=== PATIENT | female | born 1965 | race Caucasian/White ===

== ENCOUNTER 2017-12-26 03:56 | Inpatient (IN) | payer OTHER ==
[2017-12-26] VITALS (8 sets, daily range): BP systolic 97–102; BP diastolic 60–66; PULSE 72–101; TEMP 37.3–38.9; O2SAT 93–100; Ht 175.3 cm; Wt 75.9 kg
[~2017-12-26] VITALS: Ht 175.3 cm; Wt 75.9 kg
[~2017-12-26 03:56] MED LIST: ALBUAER2 INH; FENO48TA9 PO; FLNIN NAE; LEVO75TA PO; MIDRIN PO; MINO75CA2 PO
[2017-12-26] MEDS ORDERED: LORAZEPAM 2 MG/ML 1 ML VIAL ONE (04:07)
[2017-12-26 04:35] LABS: IG# 0.01 K/uL (0.00-0.02); LYMPH % 14.9 %; MEAN CELL VOLUME 91.6 fL (80-100); MEAN CORPUSCULAR HEMOGLOBIN 31.4 pg (25-34); MEAN CORPUSCULAR HGB CONC 34.3 g/dl (32-36); MEAN PLATELET VOLUME 9.9 fL (7.4-10.4); MONO % 3.3 %; NEUT % 81.6 %; NEUT ABS # 4.95 K/uL (1.4-6.5); PLATELET COUNT 187 K/uL (130-400); RED CELL DISTRIBUTION WIDTH SD 43.7 fL (36.4-46.3); WHITE BLOOD COUNT 6.06 K/uL (4.8-10.8)
[2017-12-26] MEDS ORDERED: CEFD1CAP14 PO (04:36)
[2017-12-26] MEDS ORDERED: GUAISYP4 PO (04:38)
[2017-12-26] MEDS ORDERED: DOXY100C76 PO (04:40)
[2017-12-26] MEDS ORDERED: SPIR50TA2 PO (04:41)
[2017-12-26] MEDS ORDERED: BENZ1GEL8 EXT (04:43)
[2017-12-26] MEDS ORDERED: ALBUAER INH (04:44)
[2017-12-26] MEDS ORDERED: RTNACR2515 TOP (04:45)
[2017-12-26] MEDS ORDERED: MULT-506 PO (04:46)
[2017-12-26 04:54] LABS: CALCIUM 9.3 mg/dl (8.5-10.1); CREATININE 1.03 mg/dl (0.60-1.20); POTASSIUM 3.1 mmol/L (3.5-5.1)
--- NOTE | 2017-12-26 05:02 | EMERGENCY ROOM VISIT NOTE ---
History Report prepared by Abby: Travis Napoles Under the Supervision of: Dr. Kaleigh Ogden D.O. First contact with patient: 04:01 Chief Complaint: SHORTNESS OF BREATH Stated Complaint: sob History of Present Illness The patient is a 52 year old female who presents to the Emergency Room via EMS with complaints of constant shortness of breath that began prior to arrival. Patient states the shortness of breath came on when the patient got up from bed to go to the bathroom. Patient denies a history of similar symptoms. Patient has associated symptoms of wheezing. She states the wheezing is exacerbated with the cold air and exercise. EMS states that the patient was given albuterol and 2 duonebs en route to the ER. Patient states that she has a history of exercise-induced asthma. She states that her home inhaler did not resolve her symptoms. Patient states that she was seen recently diagnosed with a sinus infection at [facility]. She state she was prescribed Omnicef. Patient denies recent alcohol use. Patient denies a history of blood clots. Patient denies a family history of blood clots. Patient denies any recent long car rides. Patient states that she has been more stressed than usual lately. She states that she is stressed about her job because she is supposed to attend a meeting in [place] this coming week. Patient states that she works for [employer]. Patient has a history of bronchitis and pneumonia. Patient states that she lives with her . Source of History: patient Onset: Prior to arrival Position: other (Global) Timing: constant Modifying Factors (Relieving): other (None) Note: Patient has wheezing. Review of Systems See HPI for pertinent positives & negatives. A total of 10 systems reviewed and were otherwise negative. Past Medical & Surgical Medical Problems: (1) Dyspnea (2) Hypothyroidism (3) SOB (shortness of breath) Surgical Problems: (1) H/O: hysterectomy Family History No pertinent family history. Social History Alcohol Use: occasionally Marital Status: Housing Status: lives with significant other Occupation Status: employed Current/Historical Medications Scheduled Albuterol Sulfate (Proventil Hfa), 2 PUFFS INH QID Benzoyl Peroxide (Benzoyl Peroxide), 1 APPLN EXT BID Cefdinir (Omnicef), 300 MG PO Q12H Doxycycline Monohydrate (Monodox), 100 MG PO BID Fenofibrate (Tricor), 48 MG PO DAILY Fluticasone Propionate (Flonase Nasal [place] *), 2 SPRAYS CONCETTA DAILY Levothyroxine Sodium (Synthroid), 75 MCG PO DAILY Multivitamin (Multivitamin), 1 TAB PO DAILY Spironolactone (Aldactone), 50 MG PO DAILY Tretinoin (Retin-A), 1 APPLN TOP QPM Scheduled PRN Guaifenesin/Codeine (Robitussin-Ac Syrup), 5 ML PO Q4 PRN for Cough Allergies Coded Allergies: No Known Allergies (Verified , 12/26/17) Physical Exam Vital Signs Date Time Temp Pulse Resp B/P (MAP) Pulse Ox O2 Delivery O2 Flow Rate FiO2 12/26/17 08:30 38.0 96 16 107/65 97 Room Air 12/26/17 07:46 94/60 12/26/17 07:31 100 19 96/64 94 Room Air 12/26/17 07:13 95 19 92/63 93 Room Air 12/26/17 06:52 95 20 88/60 92 Room Air 12/26/17 06:27 39.1 106 22 95/57 92 Room Air 12/26/17 05:25 108 16 109/71 95 Room Air 12/26/17 04:10 111 12/26/17 04:05 98 Room Air 12/26/17 04:01 38.0 107 16 118/76 97 Room Air Physical Exam General: Patient is hyperventilating and appears anxious. HEENT: Head - normocephalic and atraumatic Pupils are equal, round, and reactive to light. Extraocular eye muscles are intact, and sclera are anicteric. Nose - moist nasal mucosa without discharge. Mouth - moist buccal mucosa. Oropharynx is nonerythematous and there is no tonsillar exudate or edema noted. Neck: Supple; no JVD, nuchal rigidity, cervical lymphadenopathy. Heart: Regular rate and rhythm. There is a normal S1 and S2 with no murmurs, clicks, or gallops appreciated. Lungs: Clear to auscultation bilaterally with no wheezes, rales, or rhonchi. Abdomen: Soft, completely nontender, nondistended, with good bowel sounds. There are no palpable pulsatile masses or hepatosplenomegaly. There is no guarding, rigidity, or rebound noted. Extremities: No evidence of cyanosis, clubbing, or edema. There are easily palpable peripheral pulses. Skin: warm and dry with good turgor and no rashes. Medical Decision & Procedures ER Provider Diagnostic Interpretation: Radiology results were interpreted by me: Chest X-Ray: No cardiomegaly, no pulmonary infiltrate or pneumothorax. Unchanged from chest x -ray in 2013. Laboratory Results 12/26/17 04:15 Red Blood Count 3.82, Mean Corpuscular Volume 91.6, Mean Corpuscular Hemoglobin 31.4, Mean Corpuscular Hemoglobin Concent 34.3, Mean Platelet Volume 9.9, Neutrophils (%) (Auto) 81.6, Lymphocytes (%) (Auto) 14.9, Monocytes (%) (Auto) 3.3, Eosinophils (%) (Auto) 0.0, Basophils (%) (Auto) 0.0, Neutrophils # (Auto) 4.95, Lymphocytes # (Auto) 0.90, Monocytes # (Auto) 0.20, Eosinophils # (Auto) 0.00, Basophils # (Auto) 0.00 12/26/17 04:15 Test 12/26/17 04:15 12/26/17 05:25 12/26/17 07:06 White Blood Count 6.06 K/uL (4.8-10.8) Red Blood Count 3.82 M/uL (4.2-5.4) Hemoglobin 12.0 g/dL (12.0-16.0) Hematocrit 35.0 % (37-47) Mean Corpuscular Volume 91.6 fL (80-100) Mean Corpuscular Hemoglobin 31.4 pg (25-34) Mean Corpuscular Hemoglobin Concent 34.3 g/dl (32-36) Platelet Count 187 K/uL (130-400) Mean Platelet Volume 9.9 fL (7.4-10.4) Neutrophils (%) (Auto) 81.6 % Lymphocytes (%) (Auto) 14.9 % Monocytes (%) (Auto) 3.3 % Eosinophils (%) (Auto) 0.0 % Basophils (%) (Auto) 0.0 % Neutrophils # (Auto) 4.95 K/uL (1.4-6.5) Lymphocytes # (Auto) 0.90 K/uL (1.2-3.4) Monocytes # (Auto) 0.20 K/uL (0.11-0.59) Eosinophils # (Auto) 0.00 K/uL (0-0.5) Basophils # (Auto) 0.00 K/uL (0-0.2) RDW Standard Deviation 43.7 fL (36.4-46.3) RDW Coefficient of Variation 13.0 % (11.5-14.5) Immature Granulocyte % (Auto) 0.2 % Immature Granulocyte # (Auto) 0.01 K/uL (0.00-0.02) D-Dimer 260 ug/L FEU (0-500) Anion Gap 11.0 mmol/L (3-11) Est Creatinine Clear Calc Drug Dose 66.8 ml/min Estimated GFR () 72.4 Estimated GFR (Non- 62.5 BUN/Creatinine Ratio 9.8 (10-20) Calcium Level 9.3 mg/dl (8.5-10.1) Influenza Type A Antigen POS for Influ A (NEG) Influenza Type B Antigen Neg for Influ B (NEG) Bedside Lactic Acid Venous 1.05 mmol/L (0.90-1.70) Medications Administered Medications (Trade) Dose Ordered Sig/Anupam Route Start Time Stop Time Status Last Admin Dose Admin Lorazepam (Ativan Inj) 2 mg STK-MED ONCE .ROUTE 12/26/17 04:07 12/26/17 04:09 DC 12/26/17 04:07 1 MG Acetaminophen (Tylenol Tab) 1,000 mg NOW STAT PO 12/26/17 05:04 12/26/17 05:05 DC 12/26/17 05:22 1,000 MG Sodium Chloride 2,000 ml @ 999 mls/hr Q2H1M STAT IV 12/26/17 07:06 12/26/17 09:06 DC 12/26/17 07:11 999 MLS/HR Oseltamivir Phosphate (Tamiflu Cap) 75 mg NOW STAT PO 12/26/17 07:27 12/26/17 07:28 DC 12/26/17 07:51 75 MG Prednisone (PredniSONE TAB) 20 mg ONE ONCE PO 12/26/17 08:30 12/26/17 08:36 DC 12/26/17 08:39 20 MG Albuterol/ Ipratropium (Duoneb) 3 ml STK-MED ONCE .ROUTE 12/26/17 08:49 12/26/17 08:50 DC 12/26/17 08:51 3 ML Procedure Ativan Inj 2mg, Tylenol Tab 1000mg PO, and Sodium Chloride 2000 ml @ 999 mls/hr IV. ECG Indication: SOB/dyspnea Rate (beats per minute): 110 Rhythm: sinus tachycardia Findings: ST depression (Lateral) ED Course 0404: Past medical records reviewed. The patient was evaluated in room A3. A complete history and physical exam was performed. Laboratory studies were drawn as above. A chest x-ray was obtained. 0407: Ativan Inj 1mg IV 0410: Patient had a peak flow test performed. Patient's level was 200. 0435: I reassessed the patient who states that she is feeling slightly better. 0450: Patient's electrocardiogram was interpreted by me. 0504: Tylenol Tab 1000mg PO. Her nose was swab for influenza. 0700: While reviewing the results of the patient's laboratory studies including influenza swab, the patient stated that she wasn't feeling well. Patient is hypotensive and feeling worse again. Patient had a second IV line placed. 0706: Sodium Chloride 2000 ml @ 999 mls/hr IV. 0716: Upon reevaluation, I discussed findings and results with her. The patient was given oral Tamiflu. She verbalized agreement of the treatment plan. I spoke with Dr. Barnhart of the [facility]. The patient will be evaluated for further management and care. 0845: I was called the patient's room as she developed a severe coughing fit and became extremely short of breath. O2 saturations dropped into the mid 80s. On evaluation, she was not wheezing. Her respiratory rate was coming down. I discussed the case with the admitting doctor with regards to steroid therapy. He has prednisone ordered. Medical Decision The patient is a 52 year old female who presents to the ED with shortness of breath. Differential diagnosis includes bronchitis, pneumonia, PE, influenza, sepsis, and anxiety. Lab results show D Dimer = 260, normal renal function, glucose = 123, no leukocytosis, lactic acid = 1.05, and stable H&H. This is a 52-year-old female patient who presents to the emergency department with a sudden onset or shortness of breath. The patient describes a one week history of sinus congestion and cough for which she is being treated with Omnicef. The patient has had an intermittent fever. However, tonight, the patient awoke from sleep to go to the bathroom and had extreme shortness of breath with walking to the bathroom. She received nebulizer treatments in route in the ambulance and was feeling much better upon arrival. However, the patient had some hypotension while here in the emergency department. She received IV crystalloid therapy which brought the blood pressure up. Her influenza swab was positive for influenza A. She was given a dose of oral Tamiflu. Her blood pressure did seem to improve after the fluids. I discussed the case with the [facility] Hospitalist and they will evaluate for further management. Medication Reconcilliation Current Medication List: was personally reviewed by me Blood Pressure Screening Patient's blood pressure: Low blood pressure Addressed as an inpatient. Consults Time Called: [phone] Consulting Physician: Dr. Barnhart - [facility]ist Returned Call: [phone] Discussed the patient's case. The patient will be evaluated for further management. Impression Primary Impression: Influenza A Additional Impression: Hypotension Scribe Attestation The scribe's documentation has been prepared under my direction and personally reviewed by me in its entirety. I confirm that the note above accurately reflects all work, treatment, procedures, and medical decision making performed by me. Departure Information Dispostion Being Evaluated By Hospitalist Forms HOME CARE DOCUMENTATION FORM, IMPORTANT VISIT INFORMATION Patient Instructions My [facility] Problem Qualifiers Additional Impression: Hypotension Hypotension type: unspecified hypotension type Qualified Codes: I95.9 - Hypotension, unspecified
[2017-12-26] MEDS ORDERED: ACETAMINOPHEN 500 MG TAB PO STA (05:04)
[2017-12-26 06:19] LABS: INFLUENZA B ANTIGEN Neg for Influ B (NEG)
--- NOTE | 2017-12-26 06:56 | DIAGNOSTIC IMAGING REPORT ---
CHEST 2 VIEWS ROUTINE CLINICAL HISTORY: 52 years-old Female presenting with eval for pneumonia, shortness of breath, fever. TECHNIQUE: PA and lateral views of the chest were obtained. COMPARISON: 02/07/2014. FINDINGS: Cardiomediastinal silhouette normal. Trace blunting of the right posterior costophrenic sulcus, possibly trace pleural effusion or pleural thickening. No focal infiltrate. No pneumothorax. Anterior cervical fusion hardware noted. Upper abdomen normal. IMPRESSION: 1. No convincing evidence of acute cardiopulmonary disease. No focal infiltrate to suggest pneumonia. Possible trace right pleural effusion or pleural thickening. Electronically signed by: Jose A Bocanegra M.D. 12/26/2017 6:55 AM Dictated Date/Time: 12/26/2017 6:53 AM
[2017-12-26] MEDS ORDERED: SODIUM CHLORIDE 0.9% 1000ML 2,000 ML IV STA (07:06)
[2017-12-26] MEDS ORDERED: OSELTAMIVIR PHOSPHATE 75 MG CAP PO STA (07:27)
[2017-12-26] MEDS ORDERED: POTASSIUM CHLORIDE 10 MEQ TABCR PO ONE (07:45)
[2017-12-26] MEDS ORDERED: ACETAMINOPHEN 325 MG TAB PO PRN (08:30)
--- NOTE | 2017-12-26 08:42 | History and Physical ---
History & Physical Date & Time of Service: Dec 26, 2017 at 08:27 Chief Complaint: sob Primary Care Physician: Kenzie Hong DO History of Present Illness Source: patient, spouse, clinic records, hospital records 52 year old female with PMH of exercise induce asthma, dyslipidemia, hypothyroidism presents to the Emergency Room via EMS with complaints of worsening shortness of breath. Pt said that for about 2 weeks she has been having nasal congestion, sore throat , fever, nonproductive cough associated with wheezing. She said that she went to see her PCP and was given Omnicef on 12/20. She said that her symptoms were not getting better and she went for follow up yesterday. Pt said that this morning she got up to use the bathroom, she said that she was out of breath and was wheezing and she also had a fever. She said that that she SOB was worst to the point where she thought she was going to . She said that she used her albuterol with no relief. Call EMS and brought to the ER. As per ED chart, she received 2 DuoNeb treatment en route to the ER. Pt said that she works for [employer] and she has been in contact with alot of sick patients when she goes to [place]. Denies any recent travel. Lives with and has no upper respiratory symptoms. Complaints of chest tenderness when coughing. She said that she feels weak and body achy. Denies any palpitation, dizziness. Past Medical/Surgical History Medical Problems: (1) Hypothyroidism Status: Chronic Surgical Problems: (1) H/O: hysterectomy Status: Resolved Social History Smoking Status: Never Smoker Marital Status: Occupational Status: employed Immunizations History of Influenza Vaccine: Unknown History of Tetanus Vaccine?: Unknown History of Pneumococcal: Unknown History of Hepatitis B Vaccine: Unknown Multi-Drug Resistant Organisms History of MDRO: No Allergies Coded Allergies: No Known Allergies (Verified , 12/26/17) Home Medications Scheduled Albuterol Sulfate (Proventil Hfa), 2 PUFFS INH QID Benzoyl Peroxide (Benzoyl Peroxide), 1 APPLN EXT BID Cefdinir (Omnicef), 300 MG PO Q12H Doxycycline Monohydrate (Monodox), 100 MG PO BID Fenofibrate (Tricor), 48 MG PO DAILY Fluticasone Propionate (Flonase Nasal [place] *), 2 SPRAYS CONCETTA DAILY Levothyroxine Sodium (Synthroid), 75 MCG PO DAILY Multivitamin (Multivitamin), 1 TAB PO DAILY Spironolactone (Aldactone), 50 MG PO DAILY Tretinoin (Retin-A), 1 APPLN TOP QPM Scheduled PRN Guaifenesin/Codeine (Robitussin-Ac Syrup), 5 ML PO Q4 PRN for Cough Review of Systems Constitutional: + fever, + chills, + fatigue Eyes: No worsening of vision, No redness ENT: + nasal symptoms, + sore throat Respiratory: + cough, + sputum, + wheezing, + shortness of breath Cardiovascular: No chest pain, No orthopnea, No edema Abdomen: + nausea, No pain, No vomiting Musculoskeletal: No calf pain Genitourinary - Female: No dysuria, No urinary frequency, No urinary urgency Neurologic: No memory loss, No vertigo Psychiatric: No substance abuse Endocrine: + fatigue, No excessive thirst Hematologic / Lymphatic: No night sweats Integumentary: No itch, No bleeding Physical Exam Vital Signs Date Time Temp Pulse Resp B/P (MAP) Pulse Ox O2 Delivery O2 Flow Rate FiO2 12/26/17 07:46 94/60 12/26/17 07:31 100 19 96/64 94 Room Air 12/26/17 07:13 95 19 92/63 93 Room Air 12/26/17 06:52 95 20 88/60 92 Room Air 12/26/17 06:27 39.1 106 22 95/57 92 Room Air 12/26/17 05:25 108 16 109/71 95 Room Air 12/26/17 04:10 111 12/26/17 04:05 98 Room Air 12/26/17 04:01 38.0 107 16 118/76 97 Room Air General Appearance: WD/WN, no apparent distress Head: normocephalic, atraumatic Eyes: PERRL, EOMI, sclerae normal ENT: normal ENT inspection, + nasal congestion Neck: supple, no JVD Respiratory/Chest: chest non-tender, no respiratory distress, no accessory muscle use Cardiovascular: no edema, no JVD, + tachycardia Abdomen/GI: normal bowel sounds, non tender Back: no CVA tenderness Extremities/Musculoskelatal: no calf tenderness Neurologic/Psych: no motor/sensory deficits, alert, oriented x 3 Skin: normal color, warm/dry Diagnostics Laboratory Results Results Past 24 Hours Test 12/26/17 04:15 12/26/17 05:25 12/26/17 07:06 Range/Units White Blood Count 6.06 4.8-10.8 K/uL Red Blood Count 3.82 4.2-5.4 M/uL Hemoglobin 12.0 12.0-16.0 g/dL Hematocrit 35.0 37-47 % Mean Corpuscular Volume 91.6 80-100 fL Mean Corpuscular Hemoglobin 31.4 25-34 pg Mean Corpuscular Hemoglobin Concent 34.3 32-36 g/dl Platelet Count 187 130-400 K/uL Mean Platelet Volume 9.9 7.4-10.4 fL Neutrophils (%) (Auto) 81.6 % Lymphocytes (%) (Auto) 14.9 % Monocytes (%) (Auto) 3.3 % Eosinophils (%) (Auto) 0.0 % Basophils (%) (Auto) 0.0 % Neutrophils # (Auto) 4.95 1.4-6.5 K/uL Lymphocytes # (Auto) 0.90 1.2-3.4 K/uL Monocytes # (Auto) 0.20 0.11-0.59 K/uL Eosinophils # (Auto) 0.00 0-0.5 K/uL Basophils # (Auto) 0.00 0-0.2 K/uL RDW Standard Deviation 43.7 36.4-46.3 fL RDW Coefficient of Variation 13.0 11.5-14.5 % Immature Granulocyte % (Auto) 0.2 % Immature Granulocyte # (Auto) 0.01 0.00-0.02 K/uL D-Dimer 260 0-500 ug/L FEU Sodium Level 137 136-145 mmol/L Potassium Level 3.1 3.5-5.1 mmol/L Chloride Level 104 98-107 mmol/L Carbon Dioxide Level 22 21-32 mmol/L Anion Gap 11.0 3-11 mmol/L Blood Urea Nitrogen 10 7-18 mg/dl Creatinine 1.03 0.60-1.20 mg/dl Est Creatinine Clear Calc Drug Dose 66.8 ml/min Estimated GFR () 72.4 Estimated GFR (Non- 62.5 BUN/Creatinine Ratio 9.8 10-20 Random Glucose 123 70-99 mg/dl Calcium Level 9.3 8.5-10.1 mg/dl Influenza Type A Antigen POS for Influ A NEG Influenza Type B Antigen Neg for Influ B NEG Bedside Lactic Acid Venous 1.05 0.90-1.70 mmol/L Microbiology Results 12/26/17 Blood Culture, Received Pending 12/26/17 Blood Culture, Received Pending Diagnostic Radiology CHEST 2 VIEWS ROUTINE CLINICAL HISTORY: 52 years-old Female presenting with eval for pneumonia, shortness of breath, fever. TECHNIQUE: PA and lateral views of the chest were obtained. COMPARISON: 02/07/2014. FINDINGS: Cardiomediastinal silhouette normal. Trace blunting of the right posterior costophrenic sulcus, possibly trace pleural effusion or pleural thickening. No focal infiltrate. No pneumothorax. Anterior cervical fusion hardware noted. Upper abdomen normal. IMPRESSION: 1. No convincing evidence of acute cardiopulmonary disease. No focal infiltrate to suggest pneumonia. Possible trace right pleural effusion or pleural thickening. Electronically signed by: Jose A Bocanegra M.D. 12/26/2017 6:55 AM Dictated Date/Time: 12/26/2017 6:53 AM Impression Assessment and Plan Dyspnea Influenza A Present with fever associated with upper respiratory infection CXR showed No convincing evidence of acute cardiopulmonary disease. No focal infiltrate to suggest pneumonia. Starting on Tamiflu 75 mg BID to complete 5 days course No leukocytosis Blood cx pending Continue neb treatment, guaifenesin Will give one dose of prednisone now, will assess for additional dose Continue monitor Asthma No significant wheezing on exam Pt said that she was wheezing prior coming to the ED Received Neb treatment Will give one time dose of prednisone for now and will reassess later Hypokalemia K 3.1 K replaced Continue monitor BMP Hypotension BP was low Received IVF Will give an additional 1 L Will hold Aldactone for now Will monitor in Tele for 24 hrs Skin disorder On doxycycline BID, tretinoin and benzoyl peroxide Stable Hypothyroidism Continue levothyroxine Check TSH DVT px on Lovenox subq CODE STATUS FULL CODE Level of Care Telemetry Resuscitation Status FULL RESUSCITATION VTE Prophylaxis VTE Risk Assessment Done? Y/N: Yes Risk Level: Low Given or contraindicated: Enoxaparin (Lovenox)SQ
[2017-12-26] MEDS ORDERED: ALBUT/IPRATROP 3MG/0.5MG NEB 3 ML VIAL ONE (08:49)
[2017-12-26] MEDS ORDERED: BENZOYL PEROXIDE EXT SCH (09:00)
[2017-12-26] MEDS ORDERED: ONDANSETRON INJ 2 MG/ML 2 ML VIAL IV PRN (11:15)
[2017-12-26] MEDS ORDERED: ONDANSETRON INJ 2 MG/ML 2 ML VIAL ONE (11:21)
[2017-12-26] MEDS ORDERED: SODIUM CHLORIDE 0.9% 1000ML 1,000 ML IV ONE (13:30)
[2017-12-26 13:46] LABS: INR 1.1 (0.9-1.1)
[2017-12-26] MEDS ORDERED: INFLUENZA ADMINISTRATION CHARGE ONE (14:00)
[2017-12-26] MEDS ORDERED: INFLUENZA VIRUS QUAD VACCINE 0.5 ML SYR IM. ONE (14:00)
[2017-12-26] MEDS: ALBUT/IPRATROP 3MG/0.5MG NEB 3 ML VIAL INH SCH ×2 (14:33→19:01)
[2017-12-26] MEDS ORDERED: COUGH DROP (SUGAR FREE) LOZ 24 LOZ/1 BOX LOZ ONE (15:25)
[2017-12-26] MEDS: GUAIFENESIN/CODEINE 200MG/20MG 10ML UDC PO PRN (15:30)
[2017-12-26] MEDS: OSELTAMIVIR PHOSPHATE 75 MG CAP PO SCH (19:57)
[2017-12-26] MEDS: DOXYCYCLINE HYCLATE 100 MG CAP PO SCH (19:57)
[2017-12-26] MEDS: ENOXAPARIN 40 MG/0.4 ML SYR SQ SCH (19:58)
[2017-12-27] VITALS (15 sets, daily range): BP systolic 118–130; BP diastolic 75–86; PULSE 67–85; TEMP 36.6–37.4; O2SAT 95–98
[2017-12-27] MEDS: GUAIFENESIN/CODEINE 200MG/20MG 10ML UDC PO PRN (03:21)
[2017-12-27] MEDS: LEVOTHYROXINE 75 MCG TAB PO SCH (05:42)
[2017-12-27 07:08] LABS: HEMATOCRIT 30.2 % (37-47); HEMOGLOBIN 10.2 g/dL (12.0-16.0); MEAN CELL VOLUME 92.1 fL (80-100); MEAN CORPUSCULAR HEMOGLOBIN 31.1 pg (25-34); MEAN CORPUSCULAR HGB CONC 33.8 g/dl (32-36); MEAN PLATELET VOLUME 9.9 fL (7.4-10.4); PLATELET COUNT 155 K/uL (130-400); RED CELL DISTRIBUTION WIDTH CV 13.4 % (11.5-14.5); RED CELL DISTRIBUTION WIDTH SD 45.5 fL (36.4-46.3); WHITE BLOOD COUNT 4.97 K/uL (4.8-10.8)
[2017-12-27] MEDS: ALBUT/IPRATROP 3MG/0.5MG NEB 3 ML VIAL INH SCH ×4 (07:16→19:29)
[2017-12-27 07:52] LABS: CALCIUM 8.3 mg/dl (8.5-10.1); CREATININE 0.62 mg/dl (0.60-1.20); POTASSIUM 3.7 mmol/L (3.5-5.1)
[2017-12-27] MEDS ORDERED: SODIUM CHLORIDE 0.9% 1000ML 1,000 ML IV SCH ×2 (09:30→19:30)
[2017-12-27] MEDS: FLUTICASONE PROPIONATE NA SPR 16 GM BTL NAE SCH (09:56)
[2017-12-27] MEDS: DOXYCYCLINE HYCLATE 100 MG CAP PO SCH (09:57)
[2017-12-27] MEDS: FENOFIBRATE 48 MG TAB PO SCH (09:57)
[2017-12-27] MEDS: OSELTAMIVIR PHOSPHATE 75 MG CAP PO SCH (09:58)
--- NOTE | 2017-12-27 12:21 | Progress Note ---
Medicine Progress Note Date & Time of Visit: Dec 27, 2017 at 10:11. Subjective Pt was seen and examined Lying in bed with no distress Pt said that her breathing and cough improve She said that she is having watery diarrhea Denies any chest pain, palpitation, dizziness and fever Objective Last 8 Hrs Date Time Temp Pulse Resp B/P (MAP) Pulse Ox O2 Delivery O2 Flow Rate FiO2 12/27/17 11:23 37.2 85 20 125/75 (92) 97 Room Air 12/27/17 08:00 96 Room Air 12/27/17 07:42 37.0 74 20 121/75 (90) 95 Room Air 12/27/17 07:21 73 16 95 Room Air Physical Exam: General- No acute distress Head- atraumatic Eyes- PERRL, EOMI ENT- oropharynx clear Neck- supple, no JVD Lungs- No wheezing Heart- regular rhythm Abdomen- normal bowel sounds, soft Extremities- no calf tenderness Neuro- alert, oriented x 3; PERRL, EOMI; no facial palsy Skin- warm & dry Laboratory Results: Last 24 Hours Test 12/26/17 13:28 12/27/17 06:50 12/27/17 07:03 Prothrombin Time 12.0 SECONDS Prothromb Time International Ratio 1.1 White Blood Count 4.97 K/uL Red Blood Count 3.28 M/uL Hemoglobin 10.2 g/dL Hematocrit 30.2 % Mean Corpuscular Volume 92.1 fL Mean Corpuscular Hemoglobin 31.1 pg Mean Corpuscular Hemoglobin Concent 33.8 g/dl RDW Standard Deviation 45.5 fL RDW Coefficient of Variation 13.4 % Platelet Count 155 K/uL Mean Platelet Volume 9.9 fL Sodium Level 140 mmol/L Potassium Level 3.7 mmol/L Chloride Level 110 mmol/L Carbon Dioxide Level 25 mmol/L Anion Gap 5.0 mmol/L Blood Urea Nitrogen 7 mg/dl Creatinine 0.62 mg/dl Est Creatinine Clear Calc Drug Dose 111.0 ml/min Estimated GFR () 120.2 Estimated GFR (Non- 103.7 BUN/Creatinine Ratio 11.2 Random Glucose 92 mg/dl Calcium Level 8.3 mg/dl Magnesium Level 2.1 mg/dl Thyroid Stimulating Hormone (TSH) 1.110 uIu/ml Hepatitis C Antibody Screen NEG Bedside Glucose 99 mg/dl Assessment & Plan Dyspnea Influenza A Present with fever associated with upper respiratory infection CXR showed no evidence of acute cardiopulmonary disease. No focal infiltrate to suggest pneumonia. Continue Tamiflu 75 mg BID to complete 5 days course No leukocytosis Last fever was yesterday around 3PM Blood cx pending Continue neb treatment, guaifenesin Continue monitor Clinically improves Diarrhea Omnicef was starting on 12/20 If diarrhea persist, Will check stool for Cdiff Monitor electrolytes On IVF Asthma No significant wheezing on exam Pt said that she was wheezing prior coming to the ED Received Neb treatment Stable Hypokalemia K stable Continue monitor BMP Hypotension BP was low on admission Received IVF BP stable Skin disorder On doxycycline BID, tretinoin and benzoyl peroxide Stable Hypothyroidism Continue levothyroxine TSH WNL DVT px on Lovenox subq CODE STATUS FULL CODE Current Inpatient Medications: Current Inpatient Medications Medications (Trade) Dose Ordered Sig/Anupam Route Start Time Stop Time Status Last Admin Dose Admin Enoxaparin Sodium (Lovenox Inj) 40 mg QPM SQ 12/26/17 21:00 01/25/18 20:59 12/26/17 19:58 40 MG Oseltamivir Phosphate (Tamiflu Cap) 75 mg BID PO 12/26/17 21:00 12/31/17 08:59 12/27/17 09:58 75 MG Albuterol/ Ipratropium (Duoneb) 3 ml QIDR INH 12/26/17 12:00 01/25/18 11:59 12/27/17 07:16 3 ML Acetaminophen (Tylenol Tab) 650 mg Q6 PRN PO 12/26/17 08:30 01/25/18 08:29 12/26/17 15:29 650 MG Doxycycline Hyclate (Vibramycin Cap) 100 mg BID PO 12/26/17 21:00 01/25/18 20:59 12/27/17 09:57 100 MG Fenofibrate (Tricor Tab) 48 mg DAILY PO 12/27/17 09:00 01/26/18 08:59 12/27/17 09:57 48 MG Fluticasone Propionate (Flonase Nasal [place]) 2 sprays DAILY CONCETTA 12/27/17 09:00 01/26/18 08:59 12/27/17 09:56 2 SPRAYS Codeine Phosphate/ Guaifenesin (Robitussin-AC Sugar Free Syrup) 5 ml Q4 PRN PO 12/26/17 08:30 01/25/18 08:29 12/27/17 03:21 5 ML Levothyroxine Sodium (Synthroid Tab) 75 mcg DAILYBB PO 12/27/17 06:00 01/26/18 05:59 12/27/17 05:42 75 MCG Miscellaneous Information (Order Awaiting Action) 1 ea QS N/A 12/26/17 16:00 01/25/18 15:59 Ondansetron HCl (Zofran Inj) 4 mg Q6H PRN IV 12/26/17 11:15 01/25/18 11:14 Sodium Chloride 1,000 ml @ 100 mls/hr Q10H IV 12/27/17 09:30 12/27/17 19:29 12/27/17 10:01 100 MLS/HR
[2017-12-27] MEDS: ENOXAPARIN 40 MG/0.4 ML SYR SQ SCH (20:43)
[2017-12-27] MEDS ORDERED: LOPERAMIDE HCL 2 MG CAP PO PRN (22:00)
[2017-12-28] MEDS: LEVOTHYROXINE 75 MCG TAB PO SCH (06:17)
[2017-12-28] MEDS: GUAIFENESIN/CODEINE 200MG/20MG 10ML UDC PO PRN ×2 (06:22→12:50)
[2017-12-28] MEDS ORDERED: NURSING VERBAL MED ORDER ONE (07:15)
[2017-12-28] MEDS: ALBUT/IPRATROP 3MG/0.5MG NEB 3 ML VIAL INH SCH ×2 (07:22→11:37)
[2017-12-28 07:24] VITALS: PULSE 52; O2SAT 99
[2017-12-28 08:19] VITALS: BP 121/83; PULSE 52; TEMP 36.6; O2SAT 99
[2017-12-28] MEDS: DOXYCYCLINE HYCLATE 100 MG CAP PO SCH (08:20)
[2017-12-28] MEDS: FENOFIBRATE 48 MG TAB PO SCH (08:20)
[2017-12-28] MEDS: FLUTICASONE PROPIONATE NA SPR 16 GM BTL NAE SCH (08:20)
[2017-12-28] MEDS: OSELTAMIVIR PHOSPHATE 75 MG CAP PO SCH (08:21)
[2017-12-28 08:38] LABS: CALCIUM 8.7 mg/dl (8.5-10.1); CREATININE 0.65 mg/dl (0.60-1.20); POTASSIUM 3.4 mmol/L (3.5-5.1)
[2017-12-28] MEDS ORDERED: POTASSIUM CHLORIDE 20 MEQ TABCR PO ONE (11:00)
[2017-12-28 11:37] VITALS: PULSE 67; O2SAT 96
--- NOTE | 2017-12-28 12:31 | Progress Note ---
Internal Med Progress Note Date of Service: Dec 28, 2017. Provider Documentation: SUBJECTIVE: No acute distress. patient denies fevers or shortness of breath OBJECTIVE: Exam: General- No acute distress Head- atraumatic Eyes- EOMI ENT- oropharynx clear Neck- supple, no JVD Lungs- No wheezing Heart- regular rhythm Abdomen- normal bowel sounds, soft Extremities- no calf tenderness Neuro- alert, oriented x 3 ASSESSMENT & PLAN: Patient was evaluated as inpatient for dyspnea and fever secondary to Influenza A. Patient was started on Tamiflu as inpatient and to be discharged with prescription to continue Tamiflu. Chest X ray is negative. Blood cultures negative. Patient also with diarrhea. No C.difficile detected in stool. Diarrhea may be due to recent antibiotic use as patient was taking Omnicef at end of November and has been on chronic doxycycline for acne. Patient is no longer on Omnicef. Patient advised to avoid doxycycline for several days to see if diarrhea symptoms improve. Patient has also been treated for hypotension and hypokalemia. Patient to continue home dose Levothyroxine for hypothyroidism. DISPOSITION 01/03/2018 11:20 AM Kenzie Hong [facility] Vital Signs: Date Time Temp Pulse Resp B/P (MAP) Pulse Ox O2 Delivery O2 Flow Rate FiO2 12/28/17 11:37 67 12 96 Room Air 12/28/17 08:19 36.6 52 18 121/83 (96) 99 Room Air 12/28/17 08:00 Room Air 12/28/17 07:24 52 16 99 Room Air 12/28/17 01:50 Room Air 12/27/17 23:49 36.7 67 17 118/75 (89) 98 Room Air 12/27/17 20:59 36.8 83 16 124/76 (92) 96 Room Air 12/27/17 20:30 96 Room Air 12/27/17 20:00 Room Air 12/27/17 19:57 36.6 75 16 96 12/27/17 19:29 75 16 96 Room Air 12/27/17 16:00 96 Room Air 12/27/17 15:56 71 16 97 Room Air 12/27/17 15:07 36.6 69 18 120/80 (93) 98 Room Air Lab Results: Results Past 24 Hours Test 12/28/17 07:54 Range/Units Sodium Level 141 136-145 mmol/L Potassium Level 3.4 3.5-5.1 mmol/L Chloride Level 109 98-107 mmol/L Carbon Dioxide Level 25 21-32 mmol/L Anion Gap 8.0 3-11 mmol/L Blood Urea Nitrogen 7 7-18 mg/dl Creatinine 0.65 0.60-1.20 mg/dl Est Creatinine Clear Calc Drug Dose 105.9 ml/min Estimated GFR () 118.3 Estimated GFR (Non- 102.1 BUN/Creatinine Ratio 11.3 10-20 Random Glucose 89 70-99 mg/dl Calcium Level 8.7 8.5-10.1 mg/dl Magnesium Level 2.3 1.8-2.4 mg/dl Microbiology Results 12/27/17 C.difficile Toxin B Gene (PCR) - Final, Complete No C. difficile toxin B gene detected
[2017-12-28] MEDS ORDERED: TMF75 PO (12:35)
--- NOTE | 2017-12-28 13:00 | Discharge Instructions ---
Discharge Instructions Date of Service Dec 28, 2017. Admission Reason for Admission: Dyspnea, Hypotension Discharge Discharge Diagnosis / Problem: Influenza, Fever, Diarrhea, Hypokalemia, Hypotension Discharge Goals Goal(s): Improve function, Improve disease control Activity Recommendations Activity Limitations: per Instructions/Follow-up section Shower/Bathe: no limitations . Instructions / Follow-Up Instructions / Follow-Up Patient was evaluated as inpatient for dyspnea and fever secondary to Influenza A. Patient was started on Tamiflu as inpatient and to be discharged with prescription to continue Tamiflu. Chest X ray is negative. Blood cultures negative. Patient also with diarrhea. No C.difficile detected in stool. Diarrhea may be due to recent antibiotic use as patient was taking Omnicef at end of November and has been on chronic doxycycline for acne. Patient is no longer on Omnicef. Patient advised to avoid doxycycline for several days to see if diarrhea symptoms improve. Patient has also been treated for hypotension and hypokalemia. Patient to continue home dose Levothyroxine for hypothyroidism. DISPOSITION 01/03/2018 11:20 AM Kenzie Hong DO [facility] Current Hospital Diet Patient's current hospital diet: AHA Diet (Heart Healthy), Low Lactose Diet Discharge Diet Recommended Diet: AHA Diet (Heart Healthy), Low Lactose Diet Pending Studies Studies pending at discharge: no Laboratory Results 12/27/17 06:50 12/28/17 07:54 Test 12/26/17 04:15 12/26/17 05:25 12/26/17 07:06 12/26/17 13:28 Immature Granulocyte % (Auto) 0.2 % White Blood Count 6.06 K/uL (4.8-10.8) Red Blood Count 3.82 M/uL (4.2-5.4) Hemoglobin 12.0 g/dL (12.0-16.0) Hematocrit 35.0 % (37-47) Mean Corpuscular Volume 91.6 fL (80-100) Mean Corpuscular Hemoglobin 31.4 pg (25-34) Mean Corpuscular Hemoglobin Concent 34.3 g/dl (32-36) Platelet Count 187 K/uL (130-400) Mean Platelet Volume 9.9 fL (7.4-10.4) Neutrophils (%) (Auto) 81.6 % Lymphocytes (%) (Auto) 14.9 % Monocytes (%) (Auto) 3.3 % Eosinophils (%) (Auto) 0.0 % Basophils (%) (Auto) 0.0 % Neutrophils # (Auto) 4.95 K/uL (1.4-6.5) Lymphocytes # (Auto) 0.90 K/uL (1.2-3.4) Monocytes # (Auto) 0.20 K/uL (0.11-0.59) Eosinophils # (Auto) 0.00 K/uL (0-0.5) Basophils # (Auto) 0.00 K/uL (0-0.2) Immature Granulocyte # (Auto) 0.01 K/uL (0.00-0.02) D-Dimer 260 ug/L FEU (0-500) Influenza Type A Antigen POS for Influ A (NEG) Influenza Type B Antigen Neg for Influ B (NEG) Bedside Lactic Acid Venous 1.05 mmol/L (0.90-1.70) Prothrombin Time 12.0 SECONDS (9.0-12.0) Prothromb Time International Ratio 1.1 (0.9-1.1) Test 12/27/17 06:50 12/27/17 07:03 12/28/17 07:54 Red Blood Count 3.28 M/uL (4.2-5.4) Mean Corpuscular Volume 92.1 fL (80-100) Mean Corpuscular Hemoglobin 31.1 pg (25-34) Mean Corpuscular Hemoglobin Concent 33.8 g/dl (32-36) RDW Standard Deviation 45.5 fL (36.4-46.3) RDW Coefficient of Variation 13.4 % (11.5-14.5) Mean Platelet Volume 9.9 fL (7.4-10.4) Thyroid Stimulating Hormone (TSH) 1.110 uIu/ml (0.300-4.500) Hepatitis C Antibody Screen NEG (NEG) Bedside Glucose 99 mg/dl (70-90) Anion Gap 8.0 mmol/L (3-11) Est Creatinine Clear Calc Drug Dose 105.9 ml/min Estimated GFR () 118.3 Estimated GFR (Non- 102.1 BUN/Creatinine Ratio 11.3 (10-20) Calcium Level 8.7 mg/dl (8.5-10.1) Magnesium Level 2.3 mg/dl (1.8-2.4) Date/Time Source Procedure Growth Status 12/26/17 07:24 Blood Blood Culture - Preliminary NO GROWTH TO DATE. Resulted 12/27/17 18:00 Stool C.difficile Toxin B Gene (PCR) - Final No C. difficile toxin B gene detected Complete Medical Emergencies . Who to Call and When: Medical Emergencies: If at any time you feel your situation is an emergency, please call 911 immediately. . Non-Emergent Contact Non-Emergency issues call your: Primary Care Provider Call Non-Emergent contact if: you have any medication questions . . "Provider Documentation" section prepared by Gerardo Rodriguez. . VTE Core Measure Inpt VTE Proph given/why not?: Enoxaparin (Lovenox)SQ
--- NOTE | 2017-12-28 13:03 | Discharge Summary ---
Discharge Summary Date of Service Dec 28, 2017. Discharge Summary Admission Date: Dec 26, 2017 at 08:43 Discharge Date: Dec 28, 2017 Principal Diagnosis: Influenza, Fever, Diarrhea, Hypokalemia, Hypotension Medication Reconciliation New Medications: Oseltamivir Phosphate (Tamiflu) 75 Mg Cap 75 MG PO BID for 3 Days, #6 CAP Continued Medications: Albuterol Sulfate (Proventil Hfa) 108 Mcg/Act Aer 2 PUFFS INH QID Benzoyl Peroxide (Benzoyl Peroxide) 5 % Gel 1 APPLN EXT BID Fenofibrate (Tricor) 48 Mg Tab 48 MG PO DAILY, TAB Fluticasone Propionate (Flonase Nasal [place] *) Inha 2 SPRAYS CONCETTA DAILY, 0 Refills Guaifenesin/Codeine (Robitussin-Ac Syrup) Syrp 5 ML PO Q4 PRN for Cough for 6 Days, #120 ML Levothyroxine Sodium (Synthroid) 75 Mcg Tab 75 MCG PO DAILY, TAB Multivitamin (Multivitamin) Tab 1 TAB PO DAILY, TAB Spironolactone (Aldactone) 50 Mg Tab 50 MG PO DAILY, TAB Tretinoin (Retin-A) 0.025 % Cre 1 APPLN TOP QPM apply to face Discontinued Medications: Cefdinir (Omnicef) 300 Mg Cap 300 MG PO Q12H, CAP to take for 10 days Doxycycline Monohydrate (Monodox) 100 Mg Cap 100 MG PO BID, CAP Admission Information HPI (per Admitting provider): 52 year old female with PMH of exercise induce asthma, dyslipidemia, hypothyroidism presents to the Emergency Room via EMS with complaints of worsening shortness of breath. Pt said that for about 2 weeks she has been having nasal congestion, sore throat , fever, nonproductive cough associated with wheezing. She said that she went to see her PCP and was given Omnicef on 12/20. She said that her symptoms were not getting better and she went for follow up yesterday. Pt said that this morning she got up to use the bathroom, she said that she was out of breath and was wheezing and she also had a fever. She said that that she SOB was worst to the point where she thought she was going to . She said that she used her albuterol with no relief. Call EMS and brought to the ER. As per ED chart, she received 2 DuoNeb treatment en route to the ER. Pt said that she works for [employer] and she has been in contact with alot of sick patients when she goes to [place]. Denies any recent travel. Lives with and has no upper respiratory symptoms. Complaints of chest tenderness when coughing. She said that she feels weak and body achy. Denies any palpitation, dizziness. Physical Exam (per Admitting): General Appearance: WD/WN, no apparent distress Head: normocephalic, atraumatic Eyes: PERRL, EOMI, sclerae normal ENT: normal ENT inspection, + nasal congestion Neck: supple, no JVD Respiratory/Chest: chest non-tender, no respiratory distress, no accessory muscle use Cardiovascular: no edema, no JVD, + tachycardia Abdomen/GI: normal bowel sounds, non tender Back: no CVA tenderness Extremities/Musculoskelatal: no calf tenderness Neurologic/Psych: no motor/sensory deficits, alert, oriented x 3 Skin: normal color, warm/dry Hospital Course Patient was evaluated as inpatient for dyspnea and fever secondary to Influenza A. Patient was started on Tamiflu as inpatient and to be discharged with prescription to continue Tamiflu. Chest X ray is negative. Blood cultures negative. Patient also with diarrhea. No C.difficile detected in stool. Diarrhea may be due to recent antibiotic use as patient was taking Omnicef at end of November and has been on chronic doxycycline for acne. Patient is no longer on Omnicef. Patient advised to avoid doxycycline for several days to see if diarrhea symptoms improve. Patient has also been treated for hypotension and hypokalemia. Patient to continue home dose Levothyroxine for hypothyroidism. DISPOSITION 01/03/2018 11:20 AM Kenzie Hong DO [facility] Total time spent on discharge = 60 minutes This includes examination of the patient, discharge planning, medication reconciliation, and communication with other providers. Discharge Instructions see above
[2017-12-28 13:08] VITALS: BP 121/83; PULSE 67; TEMP 36.6; O2SAT 96
== END 2017-12-28 13:50 | disposition home or self-care (01) | DRG 315 ==
LOC: EDBD 03:56 → C.EDA 04:00 → EDBEDREQSVC 08:08 → C.2T 08:43 → ENRESERV 09:00 → CANRESERV 09:00 → EDBEDREQSVC 09:10 → EDBEDREQTM 09:27 → ENRESERV 11:10 → C.MS4W 12-27 20:34
PROVIDERS: ADMIT Internal Medicine; ATTEND Hospitalist
DX: I95.9 Hypotension, unspecified (principal); K52.1 Toxic gastroenteritis and colitis; J10.1 Influenza due to other identified influenza virus with other respiratory manifestations; E87.6 Hypokalemia; T36.1X5A Adverse effect of cephalosporins and other beta-lactam antibiotics, initial encounter; T36.4X5A Adverse effect of tetracyclines, initial encounter; J45.998 Other asthma; L70.9 Acne, unspecified; E03.9 Hypothyroidism, unspecified; E78.5 Hyperlipidemia, unspecified; Z51.81 Encounter for therapeutic drug level monitoring; Z79.899 Other long term (current) drug therapy; Z79.2 Long term (current) use of antibiotics